=== PATIENT | male | born 1945 | race Caucasian/White ===

== ENCOUNTER → 2016-09-12 | Outpatient (CLI) | payer BC ==
[~2016-09-12] MED LIST: ASPI-321 PO; LISI5TAB3 PO; MULT-506 PO; SYN50 PO
[2016-09-12 10:03] LABS: ALT/SGPT 30 U/L (12-78); AST/SGOT 22 U/L (15-37); BLOOD UREA NITROGEN 22 mg/dl (7-18); BUN/CREATININE RATIO 16.5 (10-20); CARBON DIOXIDE 27 mmol/L (21-32); CHLORIDE 108 mmol/L (98-107); GLUCOSE 130 mg/dl (70-99); POTASSIUM 4.3 mmol/L (3.5-5.1); SODIUM 143 mmol/L (136-145)
[2016-09-12 10:13] LABS: CHOLESTEROL 125 mg/dl (0-200); CHOLESTEROL/HDL RATIO 2.6; HDL CHOLESTEROL 49 mg/dl; LDL CHOLESTEROL CALCULATED 53 mg/dl; TRIGLYCERIDES 117 mg/dl (0-150); VERY LOW DENSITY LIPOPROT CALC 23 mg/dl
[2016-09-12 10:24] LABS: CALCIUM 9.1 mg/dl (8.5-10.1)
[2016-09-12 10:53] LABS: ESTIMATED AVERAGE GLUCOSE 123 mg/dl; HA1C FLAG Normal (Normal)
== END | disposition home or self-care (01) ==
LOC: C.LAB1850 07:21
PROVIDERS: ATTEND Internal Medicine
DX: I25.10 Atherosclerotic heart disease of native coronary artery without angina pectoris (principal); R73.9 Hyperglycemia, unspecified; E03.9 Hypothyroidism, unspecified

== ENCOUNTER → 2017-03-05 | Outpatient (CLI) | payer BC ==
[2017-03-05 10:33] LABS: BLOOD UREA NITROGEN 27 mg/dl (7-18); BUN/CREATININE RATIO 22.7 (10-20); CALCIUM 8.8 mg/dl (8.5-10.1); CARBON DIOXIDE 26 mmol/L (21-32); CHLORIDE 108 mmol/L (98-107); CHOLESTEROL 119 mg/dl (0-200); GLUCOSE 128 mg/dl (70-99); POTASSIUM 4.2 mmol/L (3.5-5.1); SODIUM 141 mmol/L (136-145)
[2017-03-05 10:45] LABS: CHOLESTEROL/HDL RATIO 2.3; HDL CHOLESTEROL 51 mg/dl; LDL CHOLESTEROL CALCULATED 46 mg/dl; TRIGLYCERIDES 110 mg/dl (0-150); VERY LOW DENSITY LIPOPROT CALC 22 mg/dl
== END | disposition home or self-care (01) ==
LOC: C.LAB1850 08:13
PROVIDERS: ATTEND Internal Medicine
DX: E03.9 Hypothyroidism, unspecified (principal); R73.9 Hyperglycemia, unspecified; I25.10 Atherosclerotic heart disease of native coronary artery without angina pectoris; Z00.00 Encounter for general adult medical examination without abnormal findings

== ENCOUNTER → 2017-06-05 | Day surgery (SDC) | payer BC ==
[2017-05-15 08:39] VITALS: BMI 23.0
[~2017-06-05] VITALS: Ht 185.4 cm; Wt 81.8 kg
[~2017-06-05] MED LIST changes: -ASPI-321 PO; +ASPI81TA28 PO; +EpHEDrine SULFATE INJ 50 MG/ML AMP ONE; +LEVO50TA6 PO; +LIDOCAINE HCL 2% 2 ML VIAL (20MG/ML) ONE; -LISI5TAB3 PO; +LPR25 PO; +LSN5 PO; -MULT-506 PO; +OMEG10007 PO; +PROPOFOL IV EMULSION 10 MG/ML 20 ML VIAL IV ONE; +SIMV40TA4 PO; +SODIUM CHLORIDE 0.9% 500ML 500 ML IV ONE; -SYN50 PO
[2017-06-05 09:34] VITALS: Ht 185.4 cm; Wt 81.8 kg
--- NOTE | 2017-06-05 10:00 | Endo History and Physical ---
History & Physical Date of Service: Jun 05, 2017. Chief Complaint: screening Referring Physician: Dr. Jacinto History of Present Illness 72 yo CM who presents for screening colonoscopy. Past Surgical History Hx Cardiac Surgery: Yes (HEART CATH, NO STENTS; CABG X5 VESSELS) Hx Internal Defibrillator: No Hx Pacemaker: No Hx Abdominal Surgery: No Hx of Implantable Prosthesis: No Hx Post-Op Nausea and Vomiting: No Hx Cancer Surgery: No Hx Thoracic Surgery: No Hx Orthopedic: Yes (LT HAND CONTRACTION RELEASE) Hx Urinary Tract Surgery: No Family History None Social History Smoking Status: Former Smoker Hx Substance Use: No Hx Alcohol Use: No Allergies Coded Allergies: No Known Allergies (Verified , 06/05/17) Current Medications Reported Home Medications Medications Dose Route/Sig Max Daily Dose Days Date Category [place]-3 (Fish Oil) 1 Ea Cap 1 Cap PO DAILY 05/15/17 Reported Lopressor (Metoprolol Tartrate) 25 Mg Tab 25 Mg PO BID 05/15/17 Reported Zocor (Simvastatin) 40 Mg Tab 40 Mg PO QPM 05/15/17 Reported Lisinopril 5 Mg Tab 1 Tab PO QPM 05/15/17 Reported Levothyroxine Sodium 50 Mcg Tab 1 Tab PO QPM 05/15/17 Reported Aspirin Ec (Aspirin) 81 Mg Tab 81 Mg PO QAM 05/15/17 Reported Vital Signs Weight (Kilograms): 81.82 Height (Feet): 6 Height (Inches): 1 Date Time Temp Pulse Resp B/P (MAP) Pulse Ox O2 Delivery O2 Flow Rate FiO2 06/05/17 09:40 36.4 63 20 119/67 (84) 98 Room Air Physical Exam General Appearance: WD/WN, no apparent distress Respiratory/Chest: Auscultation: breath sounds normal Cardiovascular: Heart Auscultation: RRR Abdomen: Bowel Sounds: normal Inspection & Palpation: soft, non-distended, no tenderness, guarding & rebound Assessment and Plan Assessment: 72 yo CM who presents for screening colonoscopy. Plan: Proceed with colonoscopy.
--- NOTE | 2017-06-05 11:00 | Discharge Instructions ---
Endoscopy Patient Instructions Date / Procedure(s) Performed Jun 05, 2017. Colonoscopy Allergy Information Coded Allergies: No Known Allergies (Verified , 06/05/17) Discharge Date / Findings Jun 05, 2017. Colon polyps Internal hemorrhoids Medication Instructions OK to resume all medications today as prescribed Reported Home Medications Medications Dose Route/Sig Max Daily Dose Days Date Category [place]-3 (Fish Oil) 1 Ea Cap 1 Cap PO DAILY 05/15/17 Reported Lopressor (Metoprolol Tartrate) 25 Mg Tab 25 Mg PO BID 05/15/17 Reported Zocor (Simvastatin) 40 Mg Tab 40 Mg PO QPM 05/15/17 Reported Lisinopril 5 Mg Tab 1 Tab PO QPM 05/15/17 Reported Levothyroxine Sodium 50 Mcg Tab 1 Tab PO QPM 05/15/17 Reported Aspirin Ec (Aspirin) 81 Mg Tab 81 Mg PO QAM 05/15/17 Reported Provider Instructions Activity Restrictions - No exercising or heavy lifting for 24 hours. - Do not drink alcohol the day of the procedure. - Do not drive a car or operate machinery until the day after the procedure. - Do not make any important decisions or sign important papers in 24 hours after the procedure. Following Day: - Return to full activity which may include returning to work/school. Diet Start your diet with liquids and light foods (jello, soup, juice, toast). Then eat your usual diet if not nauseated. Treatment For Common After Affects For mild abdominal pain, bloating, or excessive gas: - Rest - Eat lightly - Lie on right side Follow-Up Information Follow-up with Dr. Jacinto as scheduled Anesthesia Information What You Should Know You have had a procedure that required some medicine to reduce anxiety and discomfort. This treatment is called moderate sedation. After receiving the treatment, you may be sleepy, but you will be able to breathe on your own. The effects of the treatment may last for several hours. Follow these instructions along with Activity/Diet recommendations noted above: * Do NOT do anything where dizziness or clumsiness would be dangerous. * Rest quietly at home today, then you can be up and about tomorrow. * Have a responsible person stay with you the rest of today. * You may have had an I.V. today. If so, you may take the dressing off later today. Recommendations Call your doctor if: * Trouble breathing * Continuous vomiting for more than 24 hours * Temperature above 101 degrees * Severe abdominal pain or bloating * Pain not relieved by pain medicine ordered * There is increased drainage or redness from any incision * A large amount of rectal bleeding greater than 2-3 tablespoons. (If you had a polyp/s removed or have hemorrhoids, a small amount of blood - from the rectum is to be expected.) * You have any unanswered questions or concerns. IN THE EVENT OF A SERIOUS EMERGENCY, GO TO THE NEAREST EMERGENCY ROOM Your discharge instructions were prepared by provider Yair Naylor. Patient Instructions Signature Page Ferny Cheng Patient (or Guardian) Signature/Date: I have read and understand the instructions given to me by my caregivers. Caregiver/RN/Doctor Signature/Date: The above-named patient and/or guardian has received patient instructions on this date. + Original Patient Signature Page (only) stays with chart. Please make copy for patient.
--- NOTE | 2017-06-05 11:09 | GI REPORT ---
Procedure Date: 06/05/2017 10:26 AM Procedure: Colonoscopy Indications: Screening for colorectal malignant neoplasm Medicines: Monitored Anesthesia Care Complications: No immediate complications. Estimated Blood Loss: Estimated blood loss: none. Procedure: Pre-Anesthesia Assessment: - Prior to the procedure, a History and Physical was performed, and patient medications and allergies were reviewed. The patient's tolerance of previous anesthesia was also reviewed. The risks and benefits of the procedure and the sedation options and risks were discussed with the patient. All questions were answered, and informed consent was obtained. Prior Anticoagulants: The patient has taken aspirin, last dose was 1 day prior to procedure. ASA Grade Assessment: III - A patient with severe systemic disease. After reviewing the risks and benefits, the patient was deemed in satisfactory condition to undergo the procedure. After I obtained informed consent, the scope was passed under direct vision. Throughout the procedure, the patient's blood pressure, pulse, and oxygen saturations were monitored continuously. The scope was introduced through the anus and advanced to the terminal ileum. The colonoscopy was performed without difficulty. The patient tolerated the procedure well. The quality of the bowel preparation was good. The terminal ileum, ileocecal valve, appendiceal orifice, and rectum were photographed. Findings: Two sessile polyps were found in the sigmoid colon. The polyps were 3 to 4 mm in size. These polyps were removed with a cold snare. Resection and retrieval were complete. Non-bleeding internal hemorrhoids were found during retroflexion. The hemorrhoids were small. Impression: - Two 3 to 4 mm polyps in the sigmoid colon, removed with a cold snare. Resected and retrieved. - Non-bleeding internal hemorrhoids. Recommendation: - Resume previous diet. - Continue present medications. - Await pathology results. - Repeat colonoscopy for surveillance based on pathology results. - Return to primary care physician as previously scheduled. Yair Naylor DO 06/05/2017 11:09:28 AM This report has been signed electronically. Note Initiated On: 06/05/2017 10:26 AM I attest to the content of the Intraoperative Record and orders documented therein, exceptions below
--- NOTE | 2017-06-05 11:10 | Anesthesiology Progress Note ---
Anesthesia Post Op Note Date & Time Jun 05, 2017 at 11:09 Vital Signs Pain Intensity: 0 Vital Signs Past 12 Hours Date Time Temp Pulse Resp B/P (MAP) Pulse Ox O2 Delivery O2 Flow Rate FiO2 06/05/17 11:09 70 20 103/49 (67) 96 Room Air 06/05/17 11:03 101/50 (67) 06/05/17 10:58 70/38 (49) 06/05/17 10:53 64 20 90/43 (59) 97 Room Air 06/05/17 09:40 36.4 63 20 119/67 (84) 98 Room Air Notes Mental Status: alert / awake / arousable, participated in evaluation Pt Amnestic to Procedure: Yes Nausea / Vomiting: adequately controlled Pain: adequately controlled Airway Patency, RR, SpO2: stable & adequate BP & HR: stable & adequate Hydration State: stable & adequate Anesthetic Complications: no major complications apparent
[2017-06-05 11:30] VITALS: BP 107/49; PULSE 69; O2SAT 97
== END | disposition home or self-care (01) ==
LOC: C.GI 09:13
PROVIDERS: ATTEND Internal Medicine
DX: Z12.11 Encounter for screening for malignant neoplasm of colon (principal); D12.5 Benign neoplasm of sigmoid colon; K64.8 Other hemorrhoids; I25.10 Atherosclerotic heart disease of native coronary artery without angina pectoris; I10 Essential (primary) hypertension; E78.5 Hyperlipidemia, unspecified; E03.9 Hypothyroidism, unspecified; Z87.891 Personal history of nicotine dependence; Z79.01 Long term (current) use of anticoagulants; Z98.41 Cataract extraction status, right eye; Z98.42 Cataract extraction status, left eye; Z79.82 Long term (current) use of aspirin

== ENCOUNTER 2017-09-05 13:53 | Emergency (ER) | payer BC ==
[~2017-09-05] VITALS: Ht 185.4 cm; Wt 84.0 kg
[~2017-09-05 13:53] MED LIST changes: -EpHEDrine SULFATE INJ 50 MG/ML AMP ONE; -LIDOCAINE HCL 2% 2 ML VIAL (20MG/ML) ONE; -PROPOFOL IV EMULSION 10 MG/ML 20 ML VIAL IV ONE; -SODIUM CHLORIDE 0.9% 500ML 500 ML IV ONE
[2017-09-05 14:00] VITALS: TEMP 36.6; Ht 185.4 cm; Wt 84.0 kg
[2017-09-05] MEDS ORDERED: XYLOCAINE 1%/SOD BICARB 20 ML VIAL INFIL STA (14:17)
--- NOTE | 2017-09-05 14:24 | EMERGENCY ROOM VISIT NOTE ---
History Report prepared by Daryl: Les Stevens Under the Supervision of: Dr. Shoaib Fallon M.D. First contact with patient: 14:17 Chief Complaint: FINGER PAIN Stated Complaint: SPLINTER IN FINGER History of Present Illness The patient is a 72 year old male who presents to the Emergency Room with complaints of a sudden splinter to the right 4th finger that occurred earlier today while woodworking. The patient was making a utility cart. He states that it was only a little piece of wood, and he has full range of motion of the finger. He adds that he has no pain currently. Per the patient's , the patient was not wearing safety gloves at the time of the incident. The patient notes that he is not sure when his last tetanus shot was. He does not see an orthopedic at this time. The patient states that he is not allergic to anything. Source of History: patient, spouse/significant other Onset: Earlier today Position: finger(s) (right 4th) Symptom Intensity: only little piece of wood - full ROM Quality: other (splinter) Timing: other (sudden) Note: Associated symptoms: Denies any pain. Review of Systems See HPI for pertinent positives & negatives. A total of 10 systems reviewed and were otherwise negative. Past Medical & Surgical Medical Problems: (1) HTN (hypertension) Family History Cancer Diabetes mellitus Heart disease Hypertension Social History Smoking Status: Never Smoker Smokeless Tobacco Use: No Drug Use: none Marital Status: Housing Status: lives with family Occupation Status: retired Current/Historical Medications Scheduled Aspirin (Aspirin Ec), 81 MG PO QAM Bacitracin (Topical) (Bacitracin), 1 APPLN TOP BID Cephalexin Monohydrate (Keflex), 1 CAP PO QID Fish Oil ([place]-3), 1 CAP PO DAILY Levothyroxine Sodium (Levothyroxine Sodium), 1 TAB PO QPM Lisinopril (Lisinopril), 1 TAB PO QPM Metoprolol Tartrate (Lopressor), 25 MG PO BID Simvastatin (Zocor), 40 MG PO QPM Sulfa/Trimethoprim (Bactrim Ds 800MG/160MG), 1 TAB PO BID Allergies Coded Allergies: No Known Allergies (Verified , 06/05/17) Physical Exam Vital Signs Date Time Temp Pulse Resp B/P (MAP) Pulse Ox O2 Delivery O2 Flow Rate FiO2 09/05/17 14:00 36.6 60 16 149/81 98 Room Air Physical Exam GENERAL: Awake, alert, well-appearing, in no acute distress HENT: Normocephalic, atraumatic. Oropharynx unremarkable. EYES: Normal conjunctiva. Sclera non-icteric. NECK: Supple. No nuchal rigidity. FROM. No JVD. RESPIRATORY: Clear to auscultation. CARDIAC: Regular rate, normal rhythm. Extremities warm and well perfused. Pulses equal. ABDOMEN: Soft, non-distended. No tenderness to palpation. No rebound or guarding. No masses. RECTAL: Deferred. MUSCULOSKELETAL: Chest examination reveals no tenderness. The back is symmetrical on inspection without obvious abnormality. There is no CVA tenderness to palpation. LOWER EXTREMITIES: Calves are equal size bilaterally and non-tender. No edema. No discoloration. NEURO: Normal sensorium. No sensory or motor deficits noted. SKIN: Splinter was totally buried in skin in 4th digit right finger. Good range of motion of finger. Medical Decision & Procedures ER Provider Diagnostic Interpretation: 3 view of the finger was interpreted by me did not show any evidence of acute fracture dislocation or subluxation. The splinter itself is not radiopaque. Medications Administered Medications (Trade) Dose Ordered Sig/Yanet Route Start Time Stop Time Status Last Admin Dose Admin Diphtheria/ Pertussis/Tetanus Vacc (Adacel Inj) 0.5 ml ONCE ONCE IM. 09/05/17 14:45 09/05/17 14:46 DC 09/05/17 14:50 0.5 ML Cephalexin Monohydrate (Keflex Cap) 500 mg NOW ONCE PO 09/05/17 14:45 09/05/17 14:46 DC 09/05/17 14:51 500 MG Trimethoprim/ Sulfamethoxazole (Septra Ds 800/ 160MG Tab) 1 tab NOW STAT PO 09/05/17 14:44 09/05/17 14:46 DC 09/05/17 14:51 1 TAB Procedure Splinter removal: We did anesthetize with finger block, 1% Lidocaine. Splinter was removed. Patient tolerated procedure well. ED Course 1416: Past medical records reviewed. The patient was evaluated in room C12B. A complete history and physical examination was performed. 1417: Buffered Lidocaine 1% Inj 20 ml INFIL. 1439: I discussed results and treatment plan with the patient. He verbalizes agreement and understanding. The patient will be discharged. 1444: Septra Ds 800/160MG Tab 1 tab PO. 1445: Keflex Cap 500 mg PO, Adacel Inj 0.5 ml IM. Medical Decision Differential diagnosis: Etiologies such as fracture, dislocation, neurovascular compromise, compartment syndrome, soft tissue injury, as well as others were entertained. This is a 72-year-old male who presents to the emergency department complaining of a splinter in his finger. A finger block was applied and a very large 1 inch piece of wood was removed from the patient's finger. Due to how large the splinter was in how deep it was in the finger the patient will be placed on antibiotics. I did irrigate the finger and encouraged follow-up with Dr. Luong's office. the patient was given a tetanus shot in the emergency department and will be placed on Keflex and Bactrim. Medication Reconcilliation Current Medication List: was personally reviewed by me Blood Pressure Screening Patient's blood pressure: Elevated blood pressure Blood pressure disposition: Elevated BP felt to be situational Impression Primary Impression: Splinter Scribe Attestation The scribe's documentation has been prepared under my direction and personally reviewed by me in its entirety. I confirm that the note above accurately reflects all work, treatment, procedures, and medical decision making performed by me. Departure Information Dispostion Home / Self-Care Prescriptions Bacitracin (Topical) (BACITRACIN) 500 Unit/Gm Oin 1 APPLN TOP BID for 7 Days, #30 GM Prov: Shoaib Fallon MD 09/05/17 Sulfa/Trimethoprim (Bactrim Ds 800MG/160MG) Tab 1 TAB PO BID for 10 Days, #20 TAB Prov: Shoaib Fallon MD 09/05/17 Cephalexin Monohydrate (Keflex) 500 Mg Cap 1 CAP PO QID for 10 Days, #40 CAP Prov: Shoaib Fallon MD 09/05/17 Referrals Pro,David Parra M.D. (PCP) Patient Instructions Diphtheria Toxoid Tetanus Toxoid Adsorbed DT Td, ED Foreign Body Splinter Removal, ED ERNA [facility] Additional Instructions pply Bacitracin ointment to puncture wound twice a day You have been examined and treated today on an emergency basis only. This is not a substitute for, or an effort to provide, complete comprehensive medical care. It is impossible to recognize and treat all injuries or illnesses in a single emergency department visit. It is therefore important that you follow up closely with Dr Jacinto. Call as soon as possible for an appointment. Thank you for your time and consideration. I look forward to speaking with you again soon. Please don't hesitate to call us if you have any questions.
[2017-09-05] MEDS ORDERED: SULFAMETHOXAZOLE/TRIMETHOPRIM DS 800/160MG TAB PO STA (14:44)
[2017-09-05] MEDS ORDERED: DIPHTHERIA/TETANUS/PERTUSSIS 0.5 ML SYR/VIAL IM. ONE (14:45)
[2017-09-05] MEDS ORDERED: CEPHALEXIN MONOHYDRATE 250 MG CAP PO ONE (14:45)
[2017-09-05] MEDS ORDERED: SULF800T23 PO (14:48)
[2017-09-05] MEDS ORDERED: CEPH500C PO (14:48)
[2017-09-05] MEDS ORDERED: BACI500O11 TOP (14:50)
[2017-09-05 14:58] VITALS: BP 145/78; PULSE 72; O2SAT 99
--- NOTE | 2017-09-05 15:05 | DIAGNOSTIC IMAGING REPORT ---
R FINGER(S) MIN 2 VIEWS ROUTINE CLINICAL HISTORY: 72 years-old Male presenting with right 4th splinter in it. TECHNIQUE: Frontal, oblique, and lateral views of the right fourth finger were obtained. COMPARISON: 10/21/2007. FINDINGS: No acute fracture or malalignment. No advanced degenerative change. No radiographic soft tissue abnormality. No radiopaque foreign body. IMPRESSION: 1. No acute osseous injury. 2. No radiopaque foreign body. Ultrasound is more sensitive for nonradiopaque foreign bodies. Electronically signed by: Param Samuel M.D. 09/05/2017 3:04 PM Dictated Date/Time: 09/05/2017 3:03 PM
== END 2017-09-05 15:00 | disposition home or self-care (01) ==
LOC: C.EDB 13:55 → C.EDC 15:00
DX: S60.454A Superficial foreign body of right ring finger, initial encounter (principal); M79.644 Pain in right finger(s); W45.8XXA Other foreign body or object entering through skin, initial encounter; I10 Essential (primary) hypertension; Z79.899 Other long term (current) drug therapy; Z79.82 Long term (current) use of aspirin

== ENCOUNTER → 2017-09-10 | Outpatient (CLI) | payer BC ==
[~2017-09-10] MED LIST changes: +BACI500O11 TOP; +CEPH500C PO; +SULF800T23 PO
[2017-09-10 10:06] LABS: HEMOGLOBIN A1C 6.1 % (4.5-5.6)
[2017-09-10 10:15] LABS: ALT/SGPT 22 U/L (12-78); AST/SGOT 19 U/L (15-37); BLOOD UREA NITROGEN 27 mg/dl (7-18); CARBON DIOXIDE 23 mmol/L (21-32); CHOLESTEROL 89 mg/dl (0-200); CREATININE 1.46 mg/dl (0.60-1.40); GLUCOSE 110 mg/dl (70-99); POTASSIUM 4.4 mmol/L (3.5-5.1); SODIUM 136 mmol/L (136-145)
[2017-09-10 10:25] LABS: LDL CHOLESTEROL CALCULATED 20 mg/dl
== END | disposition home or self-care (01) ==
LOC: C.LAB1850 07:22
PROVIDERS: ATTEND Internal Medicine
DX: I25.10 Atherosclerotic heart disease of native coronary artery without angina pectoris (principal); R73.9 Hyperglycemia, unspecified; E03.9 Hypothyroidism, unspecified

== ENCOUNTER → 2017-09-18 | Outpatient (CLI) | payer BC ==
[~2017-09-18] MED LIST changes: -BACI500O11 TOP; -CEPH500C PO; -SULF800T23 PO
--- NOTE | 2017-09-18 13:18 | DIAGNOSTIC IMAGING REPORT ---
ART DOP LOWER EXT BILAT CLINICAL HISTORY: 72 years-old Male presenting with I73.9 Claudication [id number]. TECHNIQUE: Real-time grayscale and color and spectral Doppler ultrasound imaging of the bilateral lower extremities arteries was performed. Measurements calculated based on NASCET criteria. COMPARISON: None. FINDINGS: Right: Common femoral artery: Patent. Peak systolic velocity 67 cm/s. Superficial femoral artery: Dampened monophasic waveforms. Peak systolic velocity 107 cm/s. Deep femoral artery: Patent. Peak systolic velocity 78 cm/s. Popliteal artery: Dampened monophasic waveforms. Peak systolic velocity 47 cm/s. Anterior tibial artery: Dampened monophasic waveforms. Peak systolic velocity 30 cm/s. Posterior tibial artery: Dampened monophasic waveforms. Peak systolic velocity 9 cm/s. Peroneal artery: Not visualized. Dorsalis pedis: Dampened monophasic waveforms. Peak systolic velocity 35 cm/s. Left: Common femoral artery: Patent. Peak systolic velocity 102 cm/s. Superficial femoral artery: Dampened monophasic waveforms. Peak systolic velocity 62 cm/s. Deep femoral artery: Patent. Peak systolic velocity 105 cm/s. Popliteal artery: Dampened monophasic waveforms. Peak systolic velocity 29 cm/s. Anterior tibial artery: Dampened monophasic waveforms. Peak systolic velocity 21 cm/s. Posterior tibial artery: Dampened monophasic waveforms. Peak systolic velocity 70 cm/s. Peroneal artery: Dampened monophasic waveforms. Peak systolic velocity 60 cm/s. Dorsalis pedis: Dampened monophasic waveforms. Peak systolic velocity 27 cm/s. MERLENE Brachial: Right: 129 mmHg, Left: 132 mmHg. Ankle (Posterior tibial): Right: Not assessed, Left: 109 mmHg. Ankle (Dorsalis pedis): Right: 163 mmHg, Left: 112 mmHg. Ankle/Brachial Index: Right: 1.23, Left: 0.83-0.85. Reference ranges: Normal MERLENE 1.0-1.4; 0.9-0.99 borderline; less than 0.9 abnormal. IMPRESSION: 1. Diffusely blunted waveforms in the lower extremities bilaterally suggesting diffuse atherosclerosis. No focal hemodynamically significant stenosis. Patent vasculature throughout both lower extremities. 2. Abnormal left ankle brachial index. Electronically signed by: Param Samuel M.D. 09/18/2017 1:16 PM Dictated Date/Time: 09/18/2017 12:59 PM
== END | disposition home or self-care (01) ==
LOC: C.ULTR 11:28
PROVIDERS: ATTEND Internal Medicine
DX: I73.9 Peripheral vascular disease, unspecified (principal)